=== PATIENT | female | born 1960 | race Caucasian/White ===

== ENCOUNTER 2016-11-19 18:54 | Inpatient (IN) | payer BC ==
[~2016-11-19] VITALS: Ht 162.6 cm; Wt 54.4 kg
[2016-11-19 19:02] VITALS: BP_SYST 152
--- NOTE | 2016-11-19 19:08 | NUR ---
Pt placed to ER waiting room in stable condition.
[2016-11-19] MEDS ORDERED: DIPH-TET-PERTUS Vaccine 0.5 ML VIAL (ADACEL) IM ONE (19:30)
--- NOTE | 2016-11-19 19:30 | NUR ---
CLOVIS Dumont SVP PROGRAMMATIC TV at bedside examining patient.
[2016-11-19] MEDS ORDERED: KETOROLAC TROMETHAMINE 30 MG VIAL IVP ONE (20:00)
[2016-11-19] MEDS ORDERED: cefTRIAXone 1 GM VIAL IM ONE (20:00)
[2016-11-19] MEDS ORDERED: VANCOMYCIN HCL 1,000 MG in NS 250 ML IV ONE (20:00)
[2016-11-19] MEDS ORDERED: NACL 0.9% 1,000 ML IV ONE (20:00)
--- NOTE | 2016-11-19 20:30 | NUR ---
# 20 gauge angiocath placed to RIGHT FOREARM. Use of asceptic technique. Opsite placed over site. Blood return noted. Flushed with 10 cc of normal saline. No evidence of infiltration noted. Patient tolerated well.
--- NOTE | 2016-11-19 20:30 | NUR ---
Patient to ER bed 4 to gown for evaluation. Side rails up. Report given to Ruchi US.
--- NOTE | 2016-11-19 20:40 | NUR ---
Patient to ER C/O cat bite to left index funger. Patient states that her own cat bit her and today the left index finger is very painful 9/10 with swelling and reddness. AAOx4, unlabored breathing, no signs of acute distress.
[2016-11-19 20:52] LABS: BASOPHILS # (AUTO) 0.1 K/uL (0.0-0.2); BASOPHILS % (AUTO) 0.6 % (0.0-2.0); EOSINOPHILS # (AUTO) 0.1 K/uL (0.0-0.4); EOSINOPHILS % (AUTO) 0.5 % (0.0-4.0); HEMATOCRIT 35.2 % (36-48); HEMOGLOBIN 12.7 g/dL (12.0-16.0); LYMPHOCYTES # (AUTO) 0.9 K/uL (1.0-5.5); LYMPHOCYTES % (AUTO) 8.1 % (20.5-51.5); MEAN CORPUSCULAR HEMOGLOBIN 38 pg (27-31); MEAN CORPUSCULAR HGB CONC 36 % (32-36); MEAN CORPUSCULAR VOLUME 105 fL (79.0-98.0); MONOCYTES # (AUTO) 1.1 K/uL (0.0-1.0); MONOCYTES % (AUTO) 10.5 % (1.7-9.3); NEUTROPHILS # (AUTO) 8.7 K/uL (1.8-7.7); NEUTROPHILS % (AUTO) 80.3 % (40.0-70.0); PLATELET COUNT (AUTO) 188 K/uL (130-430); RED BLOOD CELL COUNT(AUTO) 3.35 MIL/uL (4.2-6.2); RED CELL DISTRIBUTION WIDTH 13.3 % (9.0-15.0); WHITE BLOOD COUNT (AUTO) 10.9 K/uL (4.8-10.8)
[2016-11-19 20:57] LABS: CREATININE 0.78 mg/dL (0.55-1.30)
[2016-11-19 21:03] LABS: TOTAL BILIRUBIN 0.8 mg/dL (0.0-1.0); TOTAL PROTEIN, SERUM 7.9 g/dL (6.4-8.3)
[2016-11-19] MEDS ORDERED: VANCOMYCIN HCL 1000 MG/VIAL IV ONE (21:05)
[2016-11-19] MEDS ORDERED: cefTRIAXone 1 GM IVPB PREMIX 50 ML IV ONE (21:15)
--- NOTE | 2016-11-19 21:39 | NUR ---
Patient csalm in bed, C/O pain 01/26. CAT BREEDER aware.
[2016-11-19 21:50] LABS: ERYTHROCYTE SEDIMENTATION RATE 72 MM/HR (0-20)
--- NOTE | 2016-11-19 22:08 | NUR ---
Medication reconciliation completed with information provided by - NO HOME MEDS PER PATIENT. Any prior medication reconciliation on file was reviewed and corrected.
--- NOTE | 2016-11-19 22:10 | NUR ---
Patient will be admitted to care of DR LARA. Admitted to MS unit. Will go to room 120B. Belongings list completed. Summary report printed. Report given to MAGEN.
[2016-11-19] MEDS ORDERED: MORPHINE 4 MG/ML INJ. SYRINGE IVP ONE (22:15)
[2016-11-19] MEDS ORDERED: ONDANSETRON HCL 4 MG/2 ML VIAL IVP ONE (22:15)
--- NOTE | 2016-11-19 22:35 | NUR ---
Transfer to [facility]. IV present no sign or symptom of infiltration.
--- NOTE | 2016-11-19 22:41 | NUR ---
ADMISSION NOTE Received patient from ER via gurney. Patient admitted with diagnosis of Cellulitis left index finger. Patient is awake, alert, oriented X 4. Patient oriented to hospital room, call light, toileting, pain management and safety-teach back done. Patient informed that Micaela will be her nurse and that their room number is 120B. Personal belongings checked and Belongings List documented. Call light within reach.
[2016-11-19 22:50] VITALS: BP_SYST 156
--- NOTE | 2016-11-19 22:52 | NUR ---
OPENING NOTES PATIENT IS A/OX4. NO SIGNS OF DISTRESS. BREATHING IS NON LABORED. VITAL SIGNS ARE STABLE. PATIENT WAS ASSISTED TO THE RESTROOM AND BACK INTO BACK. GAIT IS STEADY. PATIENT INSTRUCTED TO CALL FOR ASSISTANCE. CALL LIGHT IS WITHIN REACH. BED ALARM IS ON. WILL CONTINUE TO MONITOR.
--- NOTE | 2016-11-19 23:20 | NUR ---
DR. MARCO NICHOLS
[2016-11-19] MEDS: 0.45% NACL 1,000 ML IV SCH (23:21)
--- NOTE | 2016-11-20 00:03 | NUR ---
MD JOHNSON CALLED [facility] AT SPOKE WITH DR.JANDIAL UNDERWOOD RAJNISH [employer] SUPERVISOR.
--- NOTE | 2016-11-20 00:39 | NUR ---
MD JOHNSON CALLED [facility] AT SPOKE WITH DR.JANDIAL JEFFERY RAJNISH REVENUE STAMP CLERK.
[2016-11-20] MEDS ORDERED: ONDANSETRON HCL 4 MG/2 ML VIAL IVP PRN (01:00)
--- NOTE | 2016-11-20 01:00 | NUR ---
ROUNDS PATIENT IS IN BED SLEEPING. NO SIGNS OF DISTRESS. BREATHING IS NON LABORED. CALL LIGHT IS WITHIN REACH. BED ALARM IS ON.
[2016-11-20 01:08] VITALS: BP_SYST 157
--- NOTE | 2016-11-20 03:15 | NUR ---
ROUNDS PATIENT IS IN BED RESTING. PATIENT WAS BROUGHT CRANBERRY JUICE.
[2016-11-20 03:21] VITALS: BP_SYST 152
--- NOTE | 2016-11-20 05:01 | NUR ---
ROUNDS PATIENT WAS ASSISTED TO THE RESTROOM AND BACK INTO BED. GATE IS STEADY. WILL CONTINUE TO MONITOR.
[2016-11-20] MEDS ORDERED: CLINDAMYCIN 600 mg/50mL D5W 50 ML IV SCH (06:00)
--- NOTE | 2016-11-20 07:16 | NUR ---
CLOSING NOTES PATIENT IS IN BED WATCHING TV. BREATHING IS NON LABORED. NO SIGNS OF DISTRESS. IV IS PATENT AND SHOWS NO SIGNS OF COMPLICATION. WILL ENDORSE ALL CARE TO THE MORNING NURSE.
--- NOTE | 2016-11-20 07:41 | NUR ---
OPENING NOTE REPORT RECEIVED FROM MAGEN COOPER. PATIENT IS SLEEPING, NO SIGNS OF DISTRESS
[2016-11-20 08:00] VITALS: BP_SYST 139
--- NOTE | 2016-11-20 09:45 | NUR ---
PATIENT MEDICATED PER ORDERS. IS AT BEDSIDE. PATIENT REPORTS MILD PAIN, NOT REQUIRING MEDICATION. ABLE TO AMBULATE TO THE RESTROOM. ALERT, ORIENTED. NO SIGNS OF DISTRESS. IV INFUSING.
[2016-11-20] MEDS: LISINOPRIL 5 MG TABLET PO SCH (09:59)
--- NOTE | 2016-11-20 10:55 | NUR ---
PATIENT ASSISTED TO RESTROOM
[2016-11-20 11:32] LABS: HEMOGLOBIN 11.1 g/dL (12.0-16.0); MEAN CORPUSCULAR VOLUME 106 fL (79.0-98.0); RED BLOOD CELL COUNT(AUTO) 3.04 MIL/uL (4.2-6.2); WHITE BLOOD COUNT (AUTO) 9.6 K/uL (4.8-10.8)
[2016-11-20 11:33] LABS: BASOPHILS # (AUTO) 0.1 K/uL (0.0-0.2); BASOPHILS % (AUTO) 0.6 % (0.0-2.0); EOSINOPHILS # (AUTO) 0.2 K/uL (0.0-0.4); EOSINOPHILS % (AUTO) 1.9 % (0.0-4.0); LYMPHOCYTES # (AUTO) 1.1 K/uL (1.0-5.5); MEAN CORPUSCULAR HEMOGLOBIN 37 pg (27-31); MEAN CORPUSCULAR HGB CONC 35 % (32-36); MONOCYTES # (AUTO) 1.4 K/uL (0.0-1.0); MONOCYTES % (AUTO) 14.4 % (1.7-9.3); NEUTROPHILS # (AUTO) 6.8 K/uL (1.8-7.7); NEUTROPHILS % (AUTO) 72.1 % (40.0-70.0); PLATELET COUNT (AUTO) 164 K/uL (130-430); RED CELL DISTRIBUTION WIDTH 13.3 % (9.0-15.0)
--- NOTE | 2016-11-20 11:55 | NUR ---
ASSISTED PT TO RESTROOM. DR BELLA IN TO SEE PATIENT
[2016-11-20] MEDS: AMPICILLIN SODIUM/SULBACTAM NA 3 GM in NS 100 ML IV SCH ×2 (12:15→17:57)
[2016-11-20 12:50] VITALS: BP_SYST 131
--- NOTE | 2016-11-20 14:05 | NUR ---
patient is resting comfortably in bed, watching tv. no signs of distress. denies severe pain.
--- NOTE | 2016-11-20 16:11 | NUR ---
REPORT RECEIVED FROM MAGEN ELLIS. PATIENT IS ASLEEP IN BED. ASSESSED PATIENT. VITALS WNL, LUNGS CLEAR. PULSES GOOD. Addendum: 11/20/16 at 1617 by Cecilia Kerr RN ADDENDUM, WRONG PATIENT
[2016-11-20] MEDS: KETOROLAC TROMETHAMINE 15 MG VIAL IVP PRN (16:24)
[2016-11-20 17:29] VITALS: BP_SYST 149
[2016-11-20] MEDS: ACETAMINOPHEN 325 MG TABLET PO PRN (18:01)
[2016-11-20 20:00] VITALS: BP_SYST 138
--- NOTE | 2016-11-20 20:01 | NUR ---
OPENING NOTES PATIENT IS SITTING UP IN BED WATCHING TV. PATIENT IS A/OX4. NO SIGNS OF DISTRESS. BREATHING IS NON LABORED. VITAL SIGNS ARE STABLE. PATIENT HAS NO COMPLAINTS OF PAIN. CALL LIGHT IS WITHIN REACH. SAFETY MEASURES ARE IN PLACE. PATIENT INSTRUCTED TO CALL FOR ASSISTANCE. WILL CONTINUE TO MONITOR.
--- NOTE | 2016-11-20 21:42 | NUR ---
CALL FROM FAMILY PATIENT SISTER IN[place] CALLED. PATIENT GAVE PERMISSION TO INFORM SISTER IN-[place] SOLO OF PATIENT CARE. INFORMED SOLO OF PATIENT CARE AND PROGRESS.
--- NOTE | 2016-11-20 21:48 | NUR ---
PATIENT WALKED TO THE RESTROOM. GAIT IS STEADY.
--- NOTE | 2016-11-20 22:15 | NUR ---
ROUNDS PATIENT IS IN BED RESTING AND WATCHING TV. NO SIGNS OF DISTRESS. BREATHING IS UNLABORED. WILL CONTINUE TO MONITOR.
[2016-11-21] MEDS: AMPICILLIN SODIUM/SULBACTAM NA 3 GM in NS 100 ML IV SCH ×5 (00:01→23:30)
[2016-11-21] MEDS: 0.45% NACL 1,000 ML IV SCH ×3 (00:03→23:30)
[2016-11-21 00:15] VITALS: BP_SYST 144
--- NOTE | 2016-11-21 00:25 | NUR ---
ROUNDS PATIENT IS IN BED RESTING COMFORTABLY. PATIENT IS WATCHING TV. NO SIGNS OF DISTRESS. WILL CONTINUE TO MONITOR.
--- NOTE | 2016-11-21 02:20 | NUR ---
ROUNDS PATIENT IS IN BED SLEEPING. NO SIGNS OF DISTRESS. BREATHING IS NON LABORED. SAFETY MEASURES ARE IN PLACE. CALL LIGHT IS WITHIN REACH. WILL CONTINUE TO MONITOR.
[2016-11-21 03:36] VITALS: BP_SYST 151
--- NOTE | 2016-11-21 03:54 | NUR ---
ROUNDS PATIENT IS IN BED SLEEPING. NO SIGNS OF DISTRESS. BREATHING IS NON LABORED. CALL LIGHT IS WITHIN REACH. SAFETY MEASURES ARE IN PLACE. WILL CONTINUE TO MONITOR.
[2016-11-21 06:29] LABS: CALCIUM 8.9 mg/dL (8.4-11.0); CREATININE 0.64 mg/dL (0.55-1.30); POTASSIUM 3.9 mmol/L (3.5-5.1); TOTAL BILIRUBIN 0.8 mg/dL (0.0-1.0); TOTAL PROTEIN, SERUM 6.7 g/dL (6.4-8.3)
--- NOTE | 2016-11-21 06:30 | NUR ---
CLOSING NOTES PATIENT IS IN BED RESTING COMFORTABLY AND WATCHING TV. NO SIGNS OF DISTRESS. BREATHING IS NON LABORED. IV IS PATENT AND SHOWS NO SIGNS OF DISTRESS. SAFETY MEASURES ARE IN PLACE. WILL ENDORSE CARE TO THE MORNING NURSE.
--- NOTE | 2016-11-21 07:45 | NUR ---
OPENING NOTE PT REPORTING LEFT HAND PAIN 3-11/26. STATES SHE SLEPT WELL LAST NIGHT AND IS ENJOYING BREAKFAST. NO OTHER SIGNS OF DISTRESS. BP ELEVATED AT THIS TIME. LUNGS CLEAR, NO EDEMA. AMBULATORY, ALERT, ORIENTED.
[2016-11-21 08:00] VITALS: BP_SYST 158
--- NOTE | 2016-11-21 08:15 | NUR ---
PATIENT MEDICATED WITH TYLENOL AND TORADOL. YESTERDAY PATIENT RESPONDED WELL TO USING BOTH MEDICATIONS FOR PAIN OF 3-4. WILL REASSESS PAIN LATER. PATIENT IS IN NO APPARENT DISTRESS. NOW WATCHING TV
[2016-11-21] MEDS: KETOROLAC TROMETHAMINE 15 MG VIAL IVP PRN ×2 (08:28→14:30)
[2016-11-21] MEDS: ACETAMINOPHEN 325 MG TABLET PO PRN ×3 (08:28→20:58)
[2016-11-21] MEDS: LACTOBACILLUS RHAMNOSUS GG 1 CAP CAPSULE PO SCH ×2 (08:29→20:52)
[2016-11-21] MEDS: LISINOPRIL 5 MG TABLET PO SCH (08:29)
--- NOTE | 2016-11-21 10:05 | NUR ---
FAMILY AT BEDSIDE. PATIENT IS STILL AWAKE, ALERT. PAIN IS UNDER CONTROL.
[2016-11-21 11:46] VITALS: BP_SYST 153
--- NOTE | 2016-11-21 11:48 | NUR ---
PATIENT RESTING CALMLY. REPORTS PAIN IS VERY WELL CONTROLLED AT THIS TIME.
--- NOTE | 2016-11-21 13:05 | NUR ---
PT C/O PAIN IN HER LEFT THUMB. OFFERED ICE PACK UNTIL IT IS TIME FOR MORE MEDICATION
[2016-11-21 16:22] VITALS: BP_SYST 155
--- NOTE | 2016-11-21 16:50 | NUR ---
pt had at bedside. brought food from home for patient as she states the food served here is terrible.
--- NOTE | 2016-11-21 19:25 | NUR ---
Initial PM Note Pt was received lying in bed fully AAO x4. Speech is clear and pt is able to make her needs known. No c/o pain or discomfort. IVF is infusing well in RFA without any signs of infiltration at the IV site. Fall and safety precautions are in place. Pt was instructed to call for assistance as needed and pt verbalized understanding. Bed is in the lowest and locked positions. Call light is with pt. Will continue to monitor pt.
[2016-11-21 19:30] VITALS: BP_SYST 143
--- NOTE | 2016-11-21 20:58 | NUR ---
Pain Medication Tylenol 650mg was given po for c/o left index finger pain with relief.
--- NOTE | 2016-11-21 23:30 | NUR ---
Rounds Pt is resting comfortably in bed. IVF is infusing well and call light is with pt. No c/o pain or discomfort.
[2016-11-22 00:30] VITALS: BP_SYST 161
--- NOTE | 2016-11-22 01:44 | NUR ---
Rounds Pt is sleeping comfortably in bed. No resp distress noted. Call light is with pt and IVF is infusing well.
--- NOTE | 2016-11-22 04:15 | NUR ---
Rounds Pt is sleeping without any distress noted. IVF is infusing well and call light is with pt.
[2016-11-22] MEDS: AMPICILLIN SODIUM/SULBACTAM NA 3 GM in NS 100 ML IV SCH ×4 (05:34→23:31)
--- NOTE | 2016-11-22 06:30 | NUR ---
Rounds Pt is awake and resting comfortably in bed. All pt's needs were attended to. No fall or injury noted this shift. Will endorse to day shift nurse.
--- NOTE | 2016-11-22 07:30 | NUR ---
rn notes: patient is aaox 4. afebrile. vss stable. lungs bilaterally clear. abdomen soft and non distended. left index finger still swollen but no pain noted. warm to touch. has rt wrist #22 1/2 normal saline at 60 cc/hr infusing on well. ambulatory. call lights within reach. safety measures maintained. bed in low position. informed patient to call for assistance.
[2016-11-22 07:42] VITALS: BP_SYST 165
[2016-11-22 07:59] VITALS: BP_SYST 130
[2016-11-22] MEDS: LACTOBACILLUS RHAMNOSUS GG 1 CAP CAPSULE PO SCH ×2 (08:39→21:31)
[2016-11-22] MEDS: LISINOPRIL 5 MG TABLET PO SCH (08:39)
--- NOTE | 2016-11-22 08:42 | NUR ---
due medication given at this time. made comfortable
--- NOTE | 2016-11-22 08:43 | NUR ---
engineering came placed a watch clock. tv cannot be repaired.
--- NOTE | 2016-11-22 09:00 | NUR ---
moved patient to 128-c bed due to tv not working in the A bed. notify rand charge nurse
--- NOTE | 2016-11-22 11:00 | NUR ---
patient went to bathroom. had a bowel movement and urination x 1.
--- NOTE | 2016-11-22 11:28 | NUR ---
iv antibiotics of unasyn given at this time. made comfortable.
[2016-11-22 12:21] VITALS: BP_SYST 152
[2016-11-22] MEDS: KETOROLAC TROMETHAMINE 15 MG VIAL IVP PRN (14:12)
--- NOTE | 2016-11-22 14:32 | NUR ---
TORADOL 15 MG IV GIVEN AT HIS TIME. THROBBING PAIN LEFT INDEX.
--- NOTE | 2016-11-22 16:00 | NUR ---
ASLEEP AT THIS TIME. ASSISTS ON ADLS.
[2016-11-22 16:05] VITALS: BP_SYST 151
[2016-11-22] MEDS: 0.45% NACL 1,000 ML IV SCH ×2 (18:10→19:27)
--- NOTE | 2016-11-22 18:42 | NUR ---
UNASYN IV GIVEN AT THIS TIME. MADE COMFORTABLE. AT THE BEDSIDE.
--- NOTE | 2016-11-22 19:25 | NUR ---
initial nursing notes: Patient is awake. Patient has IV fluid infusing on the right forearm IV access. Patient denies of having pain at this time.
--- NOTE | 2016-11-22 19:25 | NUR ---
SBAR REPORT GIVEN TO INCOMING NURSE LUKE US.
--- NOTE | 2016-11-22 19:30 | NUR ---
HANGED A NEW IV BAG OF 1/2NORMAL SALINE. PT STABLE. WATCHING TV. NO PAIN. NOTED
[2016-11-22 20:01] VITALS: BP_SYST 150
--- NOTE | 2016-11-22 21:25 | NUR ---
nursing rounds: Patient watching television.
--- NOTE | 2016-11-22 23:25 | NUR ---
nursing rounds: Patient is asleep. Patient has no shortness of breath.
[2016-11-23] VITALS: BP_SYST 152
--- NOTE | 2016-11-23 01:25 | NUR ---
nursing rounds: Patient is ambulatory to the bathroom with a steady gait. Patient had no falls and no injuries.
--- NOTE | 2016-11-23 03:25 | NUR ---
nursing rounds: Patient is sleeping in bed. Patient has no respiratory distress.
[2016-11-23 04:00] VITALS: BP_SYST 151
[2016-11-23] MEDS: AMPICILLIN SODIUM/SULBACTAM NA 3 GM in NS 100 ML IV SCH ×4 (05:24→23:10)
--- NOTE | 2016-11-23 05:25 | NUR ---
nursing rounds: Patient calmly resting in bed. Call light within patient's reach.
--- NOTE | 2016-11-23 07:53 | NUR ---
closing nursing notes: Patient is awake, alert and oriented X 4. Patient is in no acute respiratory distress. No episodes of fall and no injuries throughout the shift commander. Provided nursing report to incoming morning shift nurse, MAGEN Hennessy, at patient's bedside.
--- NOTE | 2016-11-23 08:00 | NUR ---
Stef ALERT/ORIENTED X4 ,left index finger with swelling mild redness,encouraged to elevate hand , it will help to reduce discomfort/swelling, plan of care ,skin care, antibiotic,pain management discussed with patient verbalized understanding, needs attended.
[2016-11-23] MEDS: LISINOPRIL 5 MG TABLET PO SCH (08:16)
[2016-11-23] MEDS: KETOROLAC TROMETHAMINE 15 MG VIAL IVP PRN (08:17)
[2016-11-23] MEDS: LACTOBACILLUS RHAMNOSUS GG 1 CAP CAPSULE PO SCH ×2 (08:17→20:28)
--- NOTE | 2016-11-23 11:00 | NUR ---
Patient is able to reposition self in bed and is encouraged to request assistance when needed.
[2016-11-23 13:10] VITALS: BP_SYST 152
--- NOTE | 2016-11-23 14:00 | NUR ---
Ambulate with steady gait, no dizziness.
[2016-11-23 16:02] VITALS: BP_SYST 146
[2016-11-23] MEDS: 0.45% NACL 1,000 ML IV SCH (16:45)
--- NOTE | 2016-11-23 18:45 | NUR ---
No significant changes in assessment, afebrile , mild discomfort left index finger , instructed patient to elevate arm to help reduce swelling and pain verbalized understanding., caLL light within reach.
--- NOTE | 2016-11-23 19:20 | NUR ---
initial nursing notes: Patient is awake. Patient is ambulatory to the bathroom with a steady gait. Patient had no falls and no injuries.
[2016-11-23 20:06] VITALS: BP_SYST 149
[2016-11-23] MEDS: ACETAMINOPHEN 325 MG TABLET PO PRN (20:28)
--- NOTE | 2016-11-23 21:20 | NUR ---
nursing rounds: Patient stated that the pain medication that she received was effective.
--- NOTE | 2016-11-23 23:20 | NUR ---
nursing rounds: Patient is asleep. Patient has no shortness of breath.
[2016-11-24] VITALS: BP_SYST 147
--- NOTE | 2016-11-24 01:20 | NUR ---
nursing rounds: Patient is sleeping in bed. Patient has IV fluid infusing on the right forearm IV access.
--- NOTE | 2016-11-24 03:20 | NUR ---
nursing rounds: Patient asleep in bed. Patient has no respiratory distress.
[2016-11-24 04:00] VITALS: BP_SYST 143
--- NOTE | 2016-11-24 05:20 | NUR ---
nursing rounds: Patient calmly resting in bed. Call light within patient's reach.
[2016-11-24] MEDS: AMPICILLIN SODIUM/SULBACTAM NA 3 GM in NS 100 ML IV SCH ×2 (05:36→12:12)
--- NOTE | 2016-11-24 07:30 | NUR ---
INITIAL NOTE RECEIVED PATIENT FROM [employer] LEAD NURSE, PATIENT IS RESTING IN BED, NO SIGNS OF DISTRESS, NO COMPLAINTS OF PAIN, ASSESSMENT COMPLETE, PATIENT CURRENTLY HAS A IV IN RIGHT FOREARM 20 GAUGE WITH FLUIDS RUNNING, NO SIGNS OF INFILTRATION, INSTRUCTED PATIENT TO USE CALL HAMEED IF ASSISTANCE IS NEEDED, PATIENT VERBALIZED UNDERSTANDING, BED IN LOWEST POSITION, CALL HAMEED LEFT IN PATIENT'S HAND, TWO SIDE RAILS UP, FALL PRECAUTIONS IN PLACE. WILL CONTINUE TO MONITOR PATIENT.
[2016-11-24 08:00] VITALS: BP_SYST 148
[2016-11-24] MEDS: LACTOBACILLUS RHAMNOSUS GG 1 CAP CAPSULE PO SCH (08:14)
[2016-11-24] MEDS: LISINOPRIL 5 MG TABLET PO SCH (08:14)
--- NOTE | 2016-11-24 08:15 | NUR ---
closing nursing notes: Patient is awake, alert and oriented X 4. Patient is in no acute respiratory distress. No episodes of fall and no injuries throughout the cook night. Provided nursing report to incoming morning shift nurse, MAGEN Bello, at patient's bedside.
--- NOTE | 2016-11-24 08:15 | NUR ---
MEDICATIONS PATIENT WAS GIVEN MORNING MEDICATIONS, EDUCATED PATIENT ON POTENTIAL SIDE EFFECTS, PATIENT VERBALIZED UNDERSTANDING, PATIENT STATED SHE WAS IN PAIN, PRN MEDICATION GIVEN, WILL REASSESS PATIENT'S PAIN LEVEL, CALL HAMEED LEFT IN PATIENT'S HAND, BED IN LOWEST POSITION, BED ALARM ON, TWO SIDE RAILS UP, FALL PRECAUTIONS IN PLACE, WILL CONTINUE TO MONITOR PATIENT.
[2016-11-24] MEDS: KETOROLAC TROMETHAMINE 15 MG VIAL IVP PRN (08:19)
--- NOTE | 2016-11-24 09:40 | NUR ---
RN ROUNDS PATIENT IS RESTING IN BED WITH EYES CLOSED, NO SIGNS OF DISTRESS, BREATHING IS EVEN AND UNLABORED, CALL HAMEED WITHIN PATIENT'S REACH, BED IN LOWEST POSITION, BED ALARM ON, TWO SIDE RAILS UP, FALL PRECAUTIONS IN PLACE. WILL CONTINUE TO MONITOR PATIENT.
--- NOTE | 2016-11-24 11:35 | NUR ---
RN ROUNDS PATIENT IS RESTING IN BED, WATCHING TV, NO SIGNS OF DISTRESS, NO COMPLAINTS OF PAIN, NO OTHER NEEDS AT THIS TIME, WILL CONTINUE TO MONITOR, FALL PRECAUTIONS IN PLACE.
[2016-11-24 12:23] VITALS: BP_SYST 132
--- NOTE | 2016-11-24 14:00 | NUR ---
RN ROUNDS PATIENT IS LYING IN BED, WATCHING TV, PATIENT HAS NO COMPLAINTS OF PAIN AT THIS TIME, WILL CONTINUE TO MONITOR PATIENT, FALL PRECAUTIONS IN PLACE.
[2016-11-24 15:06] VITALS: BP_SYST 132
[2016-11-24] MEDS ORDERED: AMOX-426 PO (15:14)
[2016-11-24] MEDS ORDERED: L.RH1CAP PO (15:14)
--- NOTE | 2016-11-24 15:30 | NUR ---
D/C Patient Patient given medication reconciliation form and D/C instructions. Exit Care provided. Patient verbalized understanding. MD discussed with patient the results and treatment provided. Ambulatory with steady gait for discharge to home. Patient in stable condition, ID band removed. IV catheter removed, intact and dressing applied, no active bleeding. Rx of augmentin, probiotic given. Patient educated on pain management. All belongings sent with patient.
[2016-11-24 16:53] VITALS: BP_SYST 129
== END 2016-11-24 15:30 | disposition home or self-care (01) | DRG 603 ==
LOC: SED 18:54 → SMU 22:17
DX: L03.012 Cellulitis of left finger (principal); F17.210 Nicotine dependence, cigarettes, uncomplicated; I10 Essential (primary) hypertension; S61.251A Open bite of left index finger without damage to nail, initial encounter; B96.89 Other specified bacterial agents as the cause of diseases classified elsewhere; Z90.89 Acquired absence of other organs; W55.01XA Bitten by cat, initial encounter; Y93.89 Activity, other specified; Y92.89 Other specified places as the place of occurrence of the external cause; Y99.8 Other external cause status; Z71.6 Tobacco abuse counseling
CPT/HCPCS: 36415; 80053; 83605; 85025; 85651-TC; 87040-TC; 90715; 96365; 96375; 99285; J0295; J0696; J1885; J2270; J2405; J3370; J3490; J7030; J7050